=== PATIENT | female | born 1980 | race African-American/Black ===

== ENCOUNTER 2022-04-20 15:14 | Outpatient (RCR) | payer OTHER ==
[~2022-04-20 15:14] MED LIST: ATIVAN 0.50.5 MG/TAB PO; CARAFATE 1GM1 G PO; CIPRO 500MG TA500 MG PO; DEPO-PROVER150 MG/M1 IM; FLEXERIL 1010 MG/TAB PO; FLOMAX 0.40.4 MG/CAP PO; LORTAB 5/500 501 TAB PO; MOBIC 7.5MG7.5 MG PO; MOTRIN 800800 MG/TAB PO; NAPROSYN500 MG PO; NEXIUM 40MG40 MG PO; NO HOME MEDICATIONS; NORCO 325 MG-51 TAB PO; NORFLEX 10100 MG/TAB PO; PERCOCET 325 MG1 TA2 PO; PRILOSEC 20MG20 MG PO; ZOFRAN 4MG T4 MG/TAB PO
== END 2022-05-08 ==
LOC: WSOH
DX: S00.83XD Contusion of other part of head, subsequent encounter (principal); M48.061 Spinal stenosis, lumbar region without neurogenic claudication; M25.532 Pain in left wrist; Y99.0 Civilian activity done for income or pay

== ENCOUNTER 2022-05-31 12:45 | Outpatient (RCR) | payer OTHER | END 2022-06-08 | disposition home or self-care (01) | LOC: WSPT | DX: S00.83XD Contusion of other part of head, subsequent encounter (principal); M48.061 Spinal stenosis, lumbar region without neurogenic claudication; M25.532 Pain in left wrist; X58.XXXD Exposure to other specified factors, subsequent encounter ==

== ENCOUNTER 2022-06-22 08:33 | Outpatient (RCR) | payer OTHER | END 2022-07-08 | disposition home or self-care (01) | LOC: WSOH | DX: S00.83XD Contusion of other part of head, subsequent encounter (principal); M48.061 Spinal stenosis, lumbar region without neurogenic claudication; M25.532 Pain in left wrist; Y99.0 Civilian activity done for income or pay ==

== ENCOUNTER → 2023-04-04 | Outpatient (CLI) | payer BC ==
[2004-02-01 10:33] VITALS: BP 135/82; PULSE 69; TEMP 97.3
[~2023-04-04] MED LIST changes: +Albuterol 0.083% Neb Soln 2.5 MG/3 ML UD IH ONE
== END ==
LOC: COL.CARD 10:32
DX: R05.3 Chronic cough (principal)